=== PATIENT | male | born 1965 ===

== ENCOUNTER 2025-01-24 14:23 | Emergency (ER) | payer OTHER ==
[~2025-01-24] VITALS: Ht 175.3 cm; Wt 87.1 kg
[~2025-01-24 14:23] MED LIST: CEPH500 PO; HYDACE5 PO; SULTRIDS PO
[2025-01-24] MEDS ORDERED: Fluorescein Sod 1MG Opth Strips RIGHTEYE ONE (14:45)
[2025-01-24] MEDS ORDERED: Proparacaine 0.5% Opth Soln 15 ML BTL RIGHTEYE ONE (14:45)
[2025-01-24] MEDS ORDERED: HYDROcodone 5-APAP 325 TAB PO ONE (15:05)
== END 2025-01-24 16:20 | disposition home or self-care (01) ==
LOC: ER 14:23
DX: H43.11 Vitreous hemorrhage, right eye (principal); H40.051 Ocular hypertension, right eye; S49.92XA Unspecified injury of left shoulder and upper arm, initial encounter; S46.812A Strain of other muscles, fascia and tendons at shoulder and upper arm level, left arm, initial encounter; M75.51 Bursitis of right shoulder
CPT/HCPCS: 70480; 73221; 99284-25; A9270; A9270-GY